=== PATIENT | female | born 1995 | race Caucasian/White ===

== ENCOUNTER 2020-11-20 14:07 | Emergency (ER) | payer SELFPAY ==
--- NOTE | ~2020-11-20 | XR_ITS ---
EXAMINATION: XR chest 2V DATE: 11/20/2020 14:50 INDICATION: Dry cough TECHNIQUE: PA and lateral views of the chest are obtained. COMPARISON: None available FINDINGS: The lungs are free of acute opacities. There is no pleural effusion or pneumothorax. The ca rdiomediastinal silhouette is normal. The visualized bones and soft tissues are unremarkable. IMPRESSION: 1. No acute cardiopulmonary abnormality. Reviewed, dictated and finalized at location B.
[2020-11-20 14:20] VITALS: BP 94/51; PULSE 90; RESP 20; TEMP 36.7; O2SAT 99
[2020-11-20 14:22] VITALS: BP 94/51; PULSE 90; RESP 20; TEMP 36.7; O2SAT 99
--- NOTE | 2020-11-20 14:36 | ED.URI ---
HPI - URI/Sore Throat General Chief Complaint: Upper Respiratory Infection Stated Complaint: cough Time Seen by Provider: 11/20/20 14:36 Source: patient Mode of arrival: ambulatory Limitations: no limitations History of Present Illness HPI Narrative: Josselyn Smith is a 25 yo with no past medical history who comes to [facility] complaining of a 2-week well and dry cough that is worse when she lays down but she has no postnasal drip, no sore throat no fever. Related Data Allergies Allergy/AdvReac Type Severity Reaction Status Date / Time No Known Allergies Allergy Verified 11/20/20 14:22 Review of Systems Review of Systems: Narrative: CONSTITUTIONAL: Denies fever, chills, sweats. EYES: Denies visual changes, redness, discharge. ENT: Denies rhinorrhea, congestion, sore throat, otalgia. CARDIOVASCULAR: Denies chest pain, palpitations, edema. RESPIRATORY: Denies dyspnea, wheezing, dry cough GASTROINTESTINAL: Denies abdominal pain, nausea, vomiting, diarrhea. GENITOURINARY: Denies dysuria, hematuria, abnormal discharge SKIN: Denies rash or itching. NEUROLOGIC: Denies numbness, or focal weakness. PSYCHIATRIC: Denies anxiety or depression. PMFSH Past Medical History Medical History No acute medical problems Family History Family History (Updated 11/20/20 @ 14:45 by Romy Watson CNP) Other No acute medical problems Social History Social History (Updated 11/20/20 @ 14:45 by Romy Watson CNP) Smoking status: Never smoker Second hand tobacco smoke exposure: No Substance use: current Substance use type: marijuana Comments At time of signature, I agree with nursing past medical, surgical, social and family history. There is no relevant family history pertinent to the presenting complaint. Exam Narrative: Exam Narrative: GENERAL: This is a well-nourished, well-developed patient, in mild distress. HEAD: normocephalic, atraumatic. EYES: Sclera clear/white. Vision is grossly intact. EARS: External ears normal, auditory canals clear and without drainage, TMs normal without perforation. Hearing grossly intact. NOSE: External nose normal without nasal discharge, nares without redness, no rhinorrhea. THROAT: Mucous membranes moist, posterior pharynx mild erythema NECK: Neck supple, non-tender CARDIOVASCULAR: Regular rate and rhythm without murmurs, gallops, or rubs. RESPIRATORY: Coarse to auscultation. Breath sounds equal bilaterally. No wheezes, rales, or rhonchi. GASTROINTESTINAL: Abdomen soft, non-tender, SKIN: warm, intact with no suspicious lesions or rash, good texture and turgor. NEURO: awake, alert, and oriented to person, place and time. There were no obvious focal neurologic abnormalities. Steady gait EXTREMITIES: Normal range of motion. BACK: Nontender without deformity Course Course Emergency Course: Patient complains of dry cough for the last 2 to 3 weeks is no sore throat no fever no nausea vomiting or diarrhea Chest x-ray shows no acute cardiopulmonary abnormality Started on prednisone, Zyrtec, Tessalon Perles Vital Signs Vital signs: Vital Signs Temperature 98.1 F 11/20/20 14:20 Pulse Rate 90 11/20/20 14:20 Respiratory Rate 20 11/20/20 14:20 Blood Pressure 94/51 L 11/20/20 14:20 Pulse Oximetry 99 11/20/20 14:20 Temperature 98.1 F 11/20/20 14:22 Pulse Rate 90 11/20/20 14:22 Respiratory Rate 20 11/20/20 14:22 Blood Pressure 94/51 L 11/20/20 14:22 Pulse Oximetry 99 11/20/20 14:22 MDM - URI/Sore Throat Differential Diagnosis Differential diagnosis: Likely upper respiratory infection, croup, sinusitis, bronchitis, influenza, pharyngitis and other Critical Care Time Critical Care Time Critical Care Time: No Discharge Plan Discharge Clinical Impression: Bronchitis Patient Disposition: Home, Self-Care Condition: Stable Instructions: Acute Bronchitis (ED) Additional Instru
== END 2020-11-20 15:33 | disposition home or self-care (01) ==
PROVIDERS: Emergency Provider Nurse Practitioner
DX: J40 Bronchitis, not specified as acute or chronic (principal)
CPT/HCPCS: 71046; 99203; G0463

== ENCOUNTER 2021-07-15 13:51 | Emergency (ER) | payer BC, SELFPAY ==
--- NOTE | ~2021-07-15 | CT_ITS ---
EXAMINATION: CTA chest PE abdomen pel DATE: 07/15/2021 16:09 INDICATION: Right flank pain. TECHNIQUE: Computed tomography angiography (CTA) of the chest was performed with 100 mL Omnipaque-350 intravenous contrast timed to evaluate the pulmonary arteries. Coronal maximum intensity projection 3D-reconstructions were created by the technologist. Computed tomography (CT) of the abdomen and pelv is was performed with intravenous contrast. Automated exposure control and iterative reconstruction t echnique were employed. The dose-length product was 509.19 mGy-cm. COMPARISON: None. FINDINGS: CTA chest: There is no pneumonia or pleural effusion. The heart size is normal. No pericardial effusi on. There is no pulmonary embolus. The bones are unremarkable. CT abdomen and pelvis: The liver, gallbladder, spleen, pancreas, adrenal glands, and kidneys are norm al. There is a 2.1 cm dominant follicle in right right ovary. There are no dilated loops of bowel. Th e appendix is normal. There are no pathologically enlarged lymph nodes. There is no free intraperiton eal fluid. The bones are unremarkable. IMPRESSION: 1. No pulmonary embolus. 2. No etiology for the patient's symptoms. Reviewed, dictated and finalized at location A.
[2021-07-15 13:55] VITALS: BP 114/83; PULSE 74; RESP 16; TEMP 36.7
--- NOTE | 2021-07-15 14:55 | ED.BACK ---
HPI - Back Pain/Injury General Chief Complaint: Back Pain/Injury Stated Complaint: back pain Time Seen by Provider: 07/15/21 13:58 Source: patient and RN notes reviewed Mode of arrival: ambulatory Limitations: no limitations History of Present Illness HPI Narrative: This is a 25 year old female who presents for evaluation of right flank pain for 1 week. She notices right lower back pain 1 week ago. 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 Her pain worsened last night after she went back to work. She is concerned she injured her back at work. She describes her pain has feeling like she is being stabbed. She was taking tylenol and ibuprofen for her pain. She has not taken anything for her pain today. Her pain is worse with walking and breathing. She denies cough, fever, shortness of breath, nausea, vomiting, dysuria, hematuria, or abnormal vaginal discharge. She denies history of ovarian cyst. MD elicited complaint: back pain Onset (ago): week(s) Timing: constant and progressively worsening Quality: stabbing Location: right flank Radiation: none Exacerbating factors: movement and deep breaths Relieving factors: none Related Data Allergies Allergy/AdvReac Type Severity Reaction Status Date / Time No Known Allergies Allergy Verified 07/15/21 15:34 Review of Systems Review of Systems: All systems reviewed & are unremarkable except as noted in HPI and below PMFSH Past Medical History Medical History (Updated 07/15/21 @ 16:34 by Lashanda Singer MD) No acute medical problems Surgical History Surgical History (Updated 07/15/21 @ 14:59 by Lashanda Singer MD) No pertinent past surgical history Family History Family History (Updated 11/20/20 @ 14:45 by Romy Watson CNP) Other No acute medical problems Social History Social History (Updated 11/20/20 @ 14:45 by Romy Watson CNP) Smoking status: Never smoker Second hand tobacco smoke exposure: No Substance use: current Substance use type: marijuana Exam Const: General: no acute distress and alert Orientation/consciousness: patient oriented x3 Eyes: EOM: EOMs intact bilaterally Resp: Effort & Inspection: normal respiratory effort and no retractions Auscultation: clear to auscultation bilaterally Cardio: Rate: regular rate Rhythm: regular rhythm Heart sounds: no murmurs GI: GI Palp: Yes Soft to palpation, Yes Tenderness to palpation present (GI) (RUQ), No Guarding due to palpation present (GI) and No Rigid due to palpation Auscultation: normal bowel sounds : General: Yes CVA tenderness on the right Back/Spine/Pelvis: Back: CVA tenderness Skin: General skin exam: normal color Rashes: no rashes Neuro: General: patient oriented x3 and moves all extremities Psych: Mental Status: mental status grossly normal Affect: normal affect Course Reevaluation(s) Reevaluation #1: I have discussed with patient imaging shows right ovarian cyst but no other abnormality. She will be discharged with NSAIDs and muscle relaxers. Nurse reports pulse oximeter was done and patient was 100% on room air. Date: 07/15/21 Time: 16:31 Vital Signs Vital signs: Vital Signs Temperature 98.1 F 07/15/21 13:55 Pulse Rate 74 07/15/21 13:55 Respiratory Rate 16 07/15/21 13:55 Blood Pressure 114/83 07/15/21 13:55 Temperature 98.1 F 07/15/21 13:55 Pulse Rate 74 07/15/21 13:55 Respiratory Rate 16 07/15/21 13:55 Blood Pressure 114/83 07/15/21 13:55 MDM - Back Pain/Injury Lab Data Attestation: I reviewed the patient's lab results. Result diagrams: 07/15/21 15:28 07/15/21 15:28 Labs: Lab Results 07/15/21 07/15/21 07/15/21 Range/Units 14:22 15:28 15:28 WBC 9.9 (4.5-10.0) K/mm3 RBC 4.34 (4.2-5.4) M/mm3 Hgb 13.1 (12.0-15.0) g/dL Hct 39.5 (37.0-47.0) % MCV 91.0 (80-100) fl MCH 30.2 (26-34) pg MCHC 33.2 (32-36) g/dl RDW 12.7 (1
[2021-07-15 15:14] LABS: Add Urine Microscopic? YES; Appearance Urine Clear (Clear); Bilirubin Urine Negative (Negative); Blood Urine 1+ (Negative); Color Urine Yellow (Yellow); Glucose Urine UA Negative (Negative); Ketones Urine Negative (Negative); Leukocyte Esterase Ur Negative LEU/UL (Negative); Mucus Urine Rare /lpf; Nitrate Urine Negative (Negative); Protein Urine Negative (Negative); RBC Urine 0-2 /hpf (0-2); Specific Grav Ur 1.018 (1.001-1.035); Squamous Epithelial Cell Urine Few /hpf (Few); Urobilinogen Urine Negative mg/dL (<2.0)
[2021-07-15] MEDS: KETOROLAC 30 MG/ML VIAL (*BKC) IV PUSH (15:30)
[2021-07-15 15:38] LABS: Basophils Percent Auto 0.3 % (0.2-1.2); Eosinophils Absolute Auto 0.1 K/mm3 (0-0.3); Eosinophils Percent Auto 0.8 % (0-4.4); Hematocrit 39.5 % (37.0-47.0); Hemoglobin 13.1 g/dL (12.0-15.0); Immature Granulocyte Absolute 0.04 K/mm3 (0.00-0.031); Immature Granulocyte Percent A 0.4 % (0-0.5); Lymphocytes Absolute Auto 2.05 K/mm3 (0.9-3.2); Lymphocytes Percent Auto 20.8 % (18.3-44.2); Mean Corpuscular HGB Conc 33.2 g/dl (32-36); Mean Corpuscular Hemoglobin 30.2 pg (26-34); Mean Platelet Volume 8.9 fl (7.4-10.4); Monocytes Absolute Auto 0.8 K/mm3 (0.1-0.6); Monocytes Percent Auto 8.2 % (2.6-8.5); Neutrophils Absolute Auto 6.9 K/mm3 (1.3-6.7); Neutrophils Percent Auto 69.5 % (45.5-73.1); Platelet Count Result 305 k/mm3 (150-375); Red Blood Count 4.34 M/mm3 (4.2-5.4); Red Cell Distribution Width 12.7 % (11.5-14.5); White Blood Count 9.9 K/mm3 (4.5-10.0)
[2021-07-15 15:48] LABS: D Dimer 1.44 ug/mL (<0.48)
[2021-07-15 15:50] LABS: Alanine Aminotransferase 30 U/L (4-35); Albumin Level 4.5 g/dL (3.5-5.1); Alkaline Phosphatase 72 U/L (38-126); Anion Gap 8 mmol/L (8-16); Aspartate Amino Transferase 37 U/L (14-36); Bilirubin,Total 0.7 mg/dL (0.2-1.3); Blood Urea Nitrogen 11 mg/dL (7-17); Calcium 8.9 mg/dL (8.4-10.2); Carbon Dioxide 27 mmol/L (22-30); Chloride 101 mmol/L (98-107); Estimated CRCL calculation 135 ml/min; Estimated Glomerular Filt Rate > 60; Glucose 89 mg/dL (65-110); Lipase 52 U/L (23-300); Potassium 4.1 mmol/L (3.4-5.0); Sodium 136 mmol/L (137-145)
== END 2021-07-15 17:12 | disposition home or self-care (01) ==
PROVIDERS: Emergency Provider General Practice
DX: S39.012A Strain of muscle, fascia and tendon of lower back, initial encounter (principal); N83.201 Unspecified ovarian cyst, right side; X58.XXXA Exposure to other specified factors, initial encounter
CPT/HCPCS: 36415; 71275; 74177; 80053; 81001; 81025; 83690; 85025; 85380; 96374; 99284; J1885; Q9967